=== PATIENT | female | born 1960 | race Caucasian/White ===

== ENCOUNTER 2024-03-19 17:52 | Emergency (ER) | payer MEDICARE, OTHER, SELFPAY ==
[2024-03-19] VITALS (12 sets, daily range): BP systolic 140–173; BP diastolic 74–94; PULSE 85–99; RESP 16–25; TEMP 36.6; O2SAT 93–97
--- NOTE | 2024-03-19 18:54 | ED_ITS ---
HPI - General Adult 2 General: Chief complaint: General Medical Stated complaint: massage on face throat, tara tello today Time Seen by Provider: 03/19/24 18:32 History of Present Illness: 64-year-old female who presents emergenc y room with congestion difficulty swallowing. She associated this with a massage that she had 2 days back. On presentation she is having difficulty with her secretions. She sounds junky. She becomes very tachypneic if she is not sitting for a period tripoding. Related Data Previous Rx's Medication Instructions Recorded azithromycin 250 mg tablet See Rx Instructions PO .COMPLEX #6 03/19/24 (Zithromax Z-Vik) tabs cefdinir 300 mg capsule 300 mg PO BID 7 days #14 caps 03/19/24 prednisone 20 mg tablet 60 mg (3 x 20 mg) PO DAILY #20 tabs 03/19/24 Review of Systems 2 Narrative: Constitutional symptoms: Negative except as documented in HPI. Skin symptoms: Negative except as documented in HPI. Eye symptoms: Negative except as documented in HPI. ENMT symptoms: Negative except as documented in HPI. Respiratory symptoms: Negative except as documented in HPI. Cardiovascular symptoms: Negative except as documented in HPI. Gastrointestinal symptoms: Negative except as documented in HPI. Genitourinary symptoms: Negative except as documented in HPI. Musculoskeletal symptoms: Negative except as documented in HPI. Neurologic symptoms: Negative except as documented in HPI. Psychiatric symptoms: Negative except as documented in HPI. Endocrine symptoms: Negative except as documented in HPI. Physical Exam 2 Narrative: EXAM NARRATIVE: General: Alert, no acute distress. Skin: Warm, dry. Head: Normocephalic, atraumatic. Neck: Supple, trachea midline. Eye: Extraocular movements are intact. Ears, nose, mouth and throat: mucosa moist. Cardiovascular: Regular, Normal peripheral perfusion. Respiratory: Somewhat tachypneic at times, mild increased work of breathing at times, coarse lung sounds/rapidly but no wheeze. No obvious stridor at this point. However she is having difficulty with swallowing anything. Gastrointestinal: Soft, Nontender, Non distended Musculoskeletal: Normal ROM, no deformity. Neurological: Alert and oriented, No focal neurological deficit observed. Psychiatric: Cooperative, appropriate mood & affect. Course 2 Vital Signs: Vital signs: Vital Signs Temperature 97.8 F 03/19/24 18:02 Pulse Rate 93 03/19/24 20:30 Respiratory Rate 25 H 03/19/24 21:10 Blood Pressure 171/74 03/19/24 20:30 Pulse Oximetry 95 03/19/24 20:30 Oxygen Delivery Me thod Room Air 03/19/24 20:30 MDM - General Adult Medical Decision Making X-ray of the neck and soft tissue: Appears to have epiglottitis. This was reviewed and interpreted by myself the emergency room physician. I also reviewed the radiology report. Chest x-ray: No acute process. No infiltrate. No pneumothorax. This was reviewed and interpreted by myself the ER physician. Consultation: I spoke with Dr. Guillermo who is on-call for ENT at [facility]. He feels that clinically this sounds like epiglottitis and she needs transfer to [place] where there is ENT present. Lab review: I reviewed and interpreted labs personally. Patient does have a significant leukocytosis. White count is 27,000. BUN/creatinine are normal at 15 and 0.6. Reexamination: Patient has not really worsened but she has not improved either. Maybe a slight improvement and that she can talk a little more than she could initially. Assessment and plan: Epiglottitis ?Patient has received 2 racemic updrafts, IV Decadron and IV Solu-Medrol, IV Rocephin and IV azithromycin, and albuterol updraft and a DuoNeb updraft. - Discussed findings and plan with patient. Answered any questions. - All laboratory values were reviewed and interpreted personally by myself, the ER physician - All imaging was reviewed and interpreted personally by myself, the ER physician. - Evaluation and treatment of this problem were appropriate in the emergency setting Critical care: -I spent a total of >35 minutes of critical care time managing the patient, independent of any other practitioner. -The time involved in the performance of separately reportable procedures was not counted towards critical care time. Lab Data 03/19/24 18:50 03/19/24 18:50 Radiology Impressions Chest X-Ray 03/19/24 20:17 IMPRESSION: No acute cardiopulmonary process. Soft Tissue Neck X-Ray 03/19/24 20:17 IMPRESSION: Epiglottitis. Laboratory Results WBC 27.73 10^3/uL (3.29-11.43) H 03/19/24 18:50 RBC 4.55 10^6/uL (3.85-5.65) 03/19/24 18:50 Hgb 14.10 g/dL (11.27-16.99) 03/19/24 18:50 Hct 41.8 % (36-47) 03/19/24 18:50 MCV 91.9 fl (85-98) 03/19/24 18:50 MCH 31.0 pg (27-33) 03/19/24 18:50 MCHC 33.7 g/dL (30-55) 03/19/24 18:50 RDW 12.9 % (12.1-15.1) 03/19/24 18:50 Plt Count 285 10^3/cmm (157-399) 03/19/24 18:50 MPV 9.7 fL (7.4-10.4) 03/19/24 18:50 Neut % (Auto) 91.9 % 03/19/24 18:50 Lymph % (Auto) 2.6 % 03/19/24 18:50 [place] % (Auto) 4.5 % 03/19/24 18:50 Eos % (Auto) 0.0 % 03/19/24 18:50 Baso % (Auto) 0.3 % 03/19/24 18:50 Neut # (Auto) 25.50 10^3/uL (1.8-7.7) H 03/19/24 18:50 Lymph # (Auto) 0.7 10^3/uL (0.8-4.8) L 03/19/24 18:50 [place] # (Auto) 1.3 10^3/uL (0.2-0.9) H 03/19/24 18:50 Eos # (Auto) 0.0 10^3/uL (0.0-0.8) 03/19/24 18:50 Baso # (Auto) 0.1 10^3/uL (0.0-0.1) 03/19/24 18:50 Nucleated RBC % (auto) 0 % 03/19/24 18:50 Nucleated RBCs # 0.0 /100WBC 03/19/24 18:50 Sodium 137 mmol/L (136-145) 03/19/24 18:50 Potassium 3.8 mmol/L (3.5-5.1) 03/19/24 18:50 Chloride 99 mmol/L (98-107) 03/19/24 18:50 Carbon Dioxide 24 mmol/L (22-29) 03/19/24 18:50 Anion Gap 17.8 (5-19) 03/19/24 18:50 BUN 15 mg/dL (8-23) 03/19/24 18:50 Creatinine 0.6 mg/dL (0.5-0.9) 03/19/24 18:50 GFR Calculation 100.0 mL/min (90-130) 03/19/24 18:50 Glucose 153 mg/dL (65-115) H 03/19/24 18:50 Calculated Osmolality 288 mOsm/kg (285-295) 03/19/24 18:50 Calcium 8.7 mg/dL (8.5-10.5) 03/19/24 18:50 C-Reactive Protein 104.1 mg/L (0.0-4.9) H 03/19/24 18:50 All radiology interpretation(s) finalized by discharge Discharge Plan Discharge Patient Disposition: Xfer Short-Term Hosp Clinical Impression: Epiglottitis Condition: Stable Discharge Orders: Discharge ED (Routine); Ordered 03/19/24 Ordered By: Demetria Arora Referrals: Mahesh Watts MD [Primary Care Provider] - Discharge Diet: Advance as tolerated Discharge Activity: Increase activity as tolerated Patient Instructions: Upper Respiratory Infection (ED) Activity Restrictions/Additional Instructions: Thank you for choosing [facility] for your healthcare needs today. Please realize this is an emergency room and that we are providing you with a medical screening exam and this may not be complete and all inclusive of all the testing and or work up that you may need to determine your ailment or severity of your illness. You have been screened and evaluated and felt safe for discharge. Health conditions do change or evolve sometimes and as such it is important that you follow up with your Primary Doctor to be re checked, 3-5 days is a general good time frame for follow up. You are always welcome to return to the ED for re assessment if your symptoms are worsening or you have new concerns Coding Level of Care Code ED Printing Table Worker for Austyn Thomson
[2024-03-19 19:00] LABS: Basophils # 0.1 10^3/uL (0.0-0.1); Basophils % 0.3 %; Hematocrit 41.8 % (36-47); Lymphocytes # 0.7 10^3/uL (0.8-4.8); Lymphocytes % 2.6 %; Mean Corpuscular HGB Conc 33.7 g/dL (30-55); Mean Corpuscular Volume 91.9 fl (85-98); Mean Platelet Volume 9.7 fL (7.4-10.4); Monocytes # 1.3 10^3/uL (0.2-0.9); Monocytes % 4.5 %; Neutrophils % 91.9 %; Nucleated Red Blood Cells % 0 %; Platelet Count 285 10^3/cmm (157-399); Red Blood Count 4.55 10^6/uL (3.85-5.65); Red Cell Distribution Width 12.9 % (12.1-15.1); White Blood Count 27.73 10^3/uL (3.29-11.43)
[2024-03-19] MEDS: dexamethasone 10 mg/mL INJ IVP (19:01)
[2024-03-19] MEDS: cefTRIAXone 1,000 mg SDV 1000 MG IVP (19:12)
[2024-03-19 19:16] LABS: Anion Gap 17.8 (5-19); Blood Urea Nitrogen 15 mg/dL (8-23); C Reactive Protein 104.1 mg/L (0.0-4.9); Calcium 8.7 mg/dL (8.5-10.5); Carbon Dioxide 24 mmol/L (22-29); Chloride 99 mmol/L (98-107); Glucose 153 mg/dL (65-115); Osmolality Calculated 288 mOsm/kg (285-295); Potassium 3.8 mmol/L (3.5-5.1); Sodium 137 mmol/L (136-145)
[2024-03-19] MEDS: diphenhydrAMINE 50 mg/mL SDV 1mL IVP (19:58)
[2024-03-19] MEDS: oxymetazoline 0.05% Nasal Spray 15 mL 4 SPRAY NOSTRIL-B (20:07)
[2024-03-19] MEDS: racepinephrine 0.5 mL Neb INHALATION (20:12)
--- NOTE | 2024-03-19 20:17 | XRR_ITS ---
PROCEDURE INFORMATION: Exam: XR Soft Tissue Neck Exam date and time: 03/19/2024 8:49 PM Age: 64 years old Clinical indication: Epiglottitis and tonsilitis and other: Patient not able to swallow or breath well; Acute with obstruction; Additional info: Neck pain TECHNIQUE: Imaging protocol: Radiologic exam of the soft tissues of the neck. COMPARISON: CR (CHEST, ) 03/19/2024 8:24 PM FINDINGS: Airway: Thickening of the epiglottis, consistent with epiglottitis. Soft tissues: Mild prevertebral soft tissue swelling. Bones/joints: Reversal of the cervical lordosis. 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 No compression deformity. No spondylolisthesis. Vasculature: Left carotid calcification. XR/XR soft tissue neck [id number] IMPRESSION: Epiglottitis.
--- NOTE | 2024-03-19 20:17 | XRR_ITS ---
PROCEDURE INFORMATION: Exam: XR Chest Exam date and time: 03/19/2024 8:24 PM Age: 64 years old Clinical indication: Shortness of breath TECHNIQUE: Imaging protocol: Radiologic exam of the chest. Views: 1 view. COMPARISON: No relevant prior studies available. FINDINGS: Lungs: Bilateral apical fibrotic changes. Pleural spaces: Unremarkable. No pleural effusion. No pneumothorax. Heart/Mediastinum: Unremarkable. No cardiomegaly. Vasculature: Unfolding of the thoracic aorta. Bones/joints: Mild degenerative disease of the right acromioclavicular joint. XR/XR chest 1V portable [id number] IMPRESSION: No acute cardiopulmonary process.
[2024-03-19] MEDS: guaiFENesin-codeine UDC 10 mL PO (20:44)
[2024-03-19] MEDS: methylPREDNISolone sod succ 125 mg/2 mL INJ 60 MG IVP (20:44)
[2024-03-19] MEDS: morphine 4 mg/mL SDV 1 mL IVP (21:10)
[2024-03-19] MEDS: azithromycin 500 MG in sodium chloride 0.9% 250 ML 250 MG IV (21:24)
[2024-03-19] MEDS: ipratropium-albuterol 3 mL Neb INHALATION (21:26)
--- NOTE | 2024-03-19 22:00 | PC.NURSE ---
pt departed ed with air evac at [address] [facility].
== END 2024-03-19 21:59 | disposition short-term general hospital (02) ==
PROVIDERS: Emergency Provider Emergency Medicine; PCP Family Medicine
DX: J05.10 Acute epiglottitis without obstruction (principal)
CPT/HCPCS: 70360; 71045; 80048; 85025; 86140; 94640; 96374; 96375; 99285; J0456; J0696; J1100; J1200; J2270; J2919; J7050